=== PATIENT | male | born 1960 | race African-American/Black ===

== ENCOUNTER → 2018-01-31 | Outpatient (CLI) | payer OTHER ==
[~2018-01-31] MED LIST: ASPIRIN 81M81 MG/TA2 PO; JANUVIA100 MG PO; LIPITOR20 MG PO; METFORMIN ER500 MG PO; METFORMIN1000 MG PO; NORVASC5 MG PO; OMEPRAZOLE20 M1 PO; PREVACID 30MG30 M1 PO; PRO-AIR; SINGULAIR10 MG PO; pulmicort
== END ==
LOC: COL.PUL 01-28 11:30
DX: J45.909 Unspecified asthma, uncomplicated (principal); F17.210 Nicotine dependence, cigarettes, uncomplicated

== ENCOUNTER 2021-09-08 06:52 | Day surgery (SDC) | payer OTHER ==
[~2021-09-08] VITALS: Ht 185.4 cm; Wt 90.0 kg
--- NOTE | 2021-09-08 06:12 | NUR ---
61 year old patient admitted to bay #1 via ambulation, using a steady gait and no assistive devices. Medications and HX reviewed. Consent reviewed and the patient verbalized understanding of procedure. First and last name + verified with patient and confirmed with ID. Patient was still pre-registered at this time, so RN called admissions to fix status. IV was started in his R wrist on first attempt wit #20. NS is infusing without difficulty. Blood sugar obatined. Warm blanket provided. Non-slip socks are on. Call diaz is at bedside.
[2021-09-08 06:52] VITALS: BP 113/79; PULSE 71; TEMP 97.5
[~2021-09-08 06:52] MED LIST changes: +00186-0370-20 IH; +ALBUTEROL0.83 MG/ML IH; +FARXIGA10 PO; +GLUCOPHAGE1000 MG PO; +JANUVIA 100MG100 MG PO; +MOBIC15 MG PO; +NORVASC 10MG10 MG PO; +PRILOSEC 20MG20 MG PO; +SINGULAIR 110 MG/TAB PO
[2021-09-08 07:30] VITALS: BP 139/84; PULSE 78
--- NOTE | 2021-09-08 07:30 | NUR ---
Patient returns to bay 1 per cart and transfers from cart to recliner. IV fluids infusing. Site is free of redness. Given muffin and juice. Spouse in room. Temp 98.1.
[2021-09-08 07:45] VITALS: BP 142/90; PULSE 78
--- NOTE | 2021-09-08 07:45 | NUR ---
Dr. Roldan here and talks with the patient. All questions answered.
[2021-09-08 08:00] VITALS: BP 139/81; PULSE 72
--- NOTE | 2021-09-08 08:00 | NUR ---
IV discontinued and site is free of redness. Given dismissal instructions and patient dismissed to home driven by spouse. Taken to the front door per wheelchair and assisted into vehicle.
== END 2021-09-08 08:00 | disposition home or self-care (01) ==
LOC: SDCO 06:52
DX: Z12.11 Encounter for screening for malignant neoplasm of colon (principal); D12.5 Benign neoplasm of sigmoid colon; K62.1 Rectal polyp; K57.30 Diverticulosis of large intestine without perforation or abscess without bleeding; I10 Essential (primary) hypertension; J45.909 Unspecified asthma, uncomplicated; K21.9 Gastro-esophageal reflux disease without esophagitis; E11.9 Type 2 diabetes mellitus without complications; E78.5 Hyperlipidemia, unspecified; Z79.82 Long term (current) use of aspirin; Z79.84 Long term (current) use of oral hypoglycemic drugs; Z90.89 Acquired absence of other organs; Z79.899 Other long term (current) drug therapy; Z80.0 Family history of malignant neoplasm of digestive organs
CPT/HCPCS: J2704; J7030